=== PATIENT | female | born 2000 | race Caucasian/White ===

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

== ENCOUNTER 2019-07-01 10:59 | Emergency (ER) | payer MEDICAID, OTHER ==
[2019-07-01 11:22] LABS: APPEARANCE,URINE CLEAR (CLEAR); BILIRUBIN,URINE NEGATIVE (NEGATIVE); COLOR,URINE YELLOW (YELLOW); GLUCOSE, URINE (UA) NEGATIVE (NEGATIVE); KETONES,URINE NEGATIVE (NEGATIVE); LEUKOCYTE ESTERASE ,URINE NEGATIVE (NEGATIVE); NITRATE,URINE NEGATIVE (NEGATIVE); OCCULT BLOOD,URINE MODERATE (NEGATIVE); PH,URINE 5.5 (5.0-8.0); PROTEIN,URINE NEGATIVE (NEGATIVE); UROBILINOGEN,URINE 0.2 mg/dL (0.2-1.0)
[2019-07-01 11:27] LABS: BASOPHILS % (AUTO) 0.4 % (0.0-5.0); EOSINOPHILS % (AUTO) 1.3 % (0.0-8.0); HEMATOCRIT 44.1 % (36-48); LYMPHOCYTES % (AUTO) 23.4 % (21.0-51.0); MEAN CORPUSCULAR HEMOGLOBIN 29.2 pg (27.0-33.0); MEAN CORPUSCULAR HGB CONC 33.6 g/dL (32.0-36.0); MEAN CORPUSCULAR VOLUME 86.8 fL (80-100); MONOCYTES % (AUTO) 4.8 % (3.0-13.0); NEUTROPHILS % (AUTO) 70.1 % (40.0-77.0); PLATELET COUNT (AUTO) 273 K/uL (130-400); RED BLOOD CELL COUNT(AUTO) 5.08 MIL/uL (4.00-5.50); RED CELL DISTRIBUTION WIDTH 13.9 % (11.0-15.5); WHITE BLOOD COUNT (AUTO) 7.8 K/uL (4.8-10.8)
[2019-07-01 11:31] LABS: AMPHET/METH SCREEN,URINE NEGATIVE (NEGATIVE); BACTERIA,URINE Few /HPF (None Seen); BARBITURATE SCREEN, URINE NEGATIVE (NEGATIVE); BENZODIAZEPINES SCREEN,URINE NEGATIVE (NEGATIVE); CANNABINOID SCREEN,URINE POSITIVE (NEGATIVE); COCAINE SCREEN,URINE NEGATIVE (NEGATIVE); OPIATE SCREEN,URINE NEGATIVE (NEGATIVE); PHENCYCLIDINE SCREEN,URINE NEGATIVE (NEGATIVE); RBC,URINE 0-1 /HPF (0-1); WBC,URINE 0-1 /HPF (0-1)
[2019-07-01 11:51] LABS: CREATININE 0.8 mg/dL (0.5-1.5); POTASSIUM 4.2 mmol/L (3.5-5.1)
[2019-07-01 12:01] LABS: ALBUMIN 4.4 g/dL (3.5-5.0); BILIRUBIN,TOTAL 0.6 mg/dL (0.2-1.0); TOTAL PROTEIN, SERUM 8.3 g/dL (6.0-8.3)
== END 2019-07-01 12:45 | disposition home or self-care (01) ==
LOC: EDH 10:59
DX: N93.8 Other specified abnormal uterine and vaginal bleeding (principal); R55 Syncope and collapse; Z72.0 Tobacco use
CPT/HCPCS: 36415; 80053; 80305; 81001; 84702; 85025; 86900; 86901; 93005

== ENCOUNTER 2019-12-05 17:10 | Emergency (ER) | payer MEDICAID ==
[2019-12-05 17:41] LABS: BASOPHILS % (AUTO) 0.2 % (0.0-5.0); EOSINOPHILS % (AUTO) 0.2 % (0.0-8.0); LYMPHOCYTES % (AUTO) 13.1 % (21.0-51.0); MEAN CORPUSCULAR HEMOGLOBIN 30.5 pg (27.0-33.0); MEAN CORPUSCULAR HGB CONC 34.2 g/dL (32.0-36.0); MEAN CORPUSCULAR VOLUME 89.3 fL (80-100); MONOCYTES % (AUTO) 3.6 % (3.0-13.0); NEUTROPHILS % (AUTO) 82.5 % (40.0-77.0); PLATELET COUNT (AUTO) 191 K/uL (130-400); RED BLOOD CELL COUNT(AUTO) 4.03 MIL/uL (4.00-5.50); RED CELL DISTRIBUTION WIDTH 13.8 % (11.0-15.5); WHITE BLOOD COUNT (AUTO) 12.7 K/uL (4.8-10.8)
[2019-12-05 17:42] LABS: APPEARANCE,URINE Cloudy (CLEAR); BILIRUBIN,URINE Negative (NEGATIVE); COLOR,URINE Yellow (YELLOW); GLUCOSE, URINE (UA) Negative (NEGATIVE); KETONES,URINE Negative (NEGATIVE); LEUKOCYTE ESTERASE ,URINE Negative (NEGATIVE); NITRATE,URINE Negative (NEGATIVE); OCCULT BLOOD,URINE Negative (NEGATIVE); PH,URINE 7.5 (5.0-8.0); PROTEIN,URINE Negative (NEGATIVE); UROBILINOGEN,URINE 0.2 mg/dL (0.2-1.0)
[2019-12-05 17:49] LABS: AMPHET/METH SCREEN,URINE NEGATIVE (NEGATIVE); BARBITURATE SCREEN, URINE NEGATIVE (NEGATIVE); BENZODIAZEPINES SCREEN,URINE NEGATIVE (NEGATIVE); CANNABINOID SCREEN,URINE POSITIVE (NEGATIVE); COCAINE SCREEN,URINE NEGATIVE (NEGATIVE); OPIATE SCREEN,URINE NEGATIVE (NEGATIVE); PHENCYCLIDINE SCREEN,URINE NEGATIVE (NEGATIVE)
[2019-12-05 17:51] LABS: CREATININE 0.6 mg/dL (0.5-1.5); POTASSIUM 3.6 mmol/L (3.5-5.1)
[2019-12-05 17:56] LABS: ALBUMIN 3.4 g/dL (3.5-5.0); BILIRUBIN,TOTAL 0.7 mg/dL (0.2-1.0); TOTAL PROTEIN, SERUM 6.9 g/dL (6.0-8.3)
[2019-12-05 17:58] LABS: BACTERIA,URINE Few /HPF (None Seen); MUCUS,URINE Few LPF (None Seen); SQUAMOUS EPITHELIAL CELL,UR 0-2 /HPF (0-2)
[2019-12-05] MEDS ORDERED: SODIUM CHLORIDE 0.9% 1000ML 1,000 ML IV ONE (18:35)
== END 2019-12-05 19:42 | disposition home or self-care (01) ==
LOC: EDH 17:10
DX: O9A.212 Injury, poisoning and certain other consequences of external causes complicating pregnancy, second trimester (principal); S62.303A Unspecified fracture of third metacarpal bone, left hand, initial encounter for closed fracture; R55 Syncope and collapse; Z72.0 Tobacco use; Z3A.19 19 weeks gestation of pregnancy; W18.39XA Other fall on same level, initial encounter; Y93.89 Activity, other specified; Y92.89 Other specified places as the place of occurrence of the external cause; Y99.8 Other external cause status
CPT/HCPCS: 29125; 36415; 73130; 80053; 80305; 81001; 85025; 93005; 96360; 99285; J7030

== ENCOUNTER 2020-04-04 14:40 | Observation (INO) | payer MEDICAID ==
[~2020-04-04] VITALS: Ht 167.6 cm; Wt 79.4 kg
[2020-04-04 15:21] LABS: APPEARANCE,URINE Clear (CLEAR); BILIRUBIN,URINE Negative (NEGATIVE); COLOR,URINE Yellow (YELLOW); GLUCOSE, URINE (UA) Negative (NEGATIVE); KETONES,URINE Negative (NEGATIVE); LEUKOCYTE ESTERASE ,URINE Trace (NEGATIVE); NITRATE,URINE Negative (NEGATIVE); OCCULT BLOOD,URINE Negative (NEGATIVE); PROTEIN,URINE Negative (NEGATIVE)
[2020-04-04 15:38] LABS: BACTERIA,URINE Rare /HPF (None Seen); RBC,URINE 0-1 /HPF (0-1); SQUAMOUS EPITHELIAL CELL,UR Rare /HPF (0-2)
[2020-04-04] MEDS ORDERED: LACTATED RINGERS 1000ML 1,000 ML IV SCH (16:00)
[2020-04-04] MEDS ORDERED: CEFTRIAXONE SODIUM 1 GM IV SCH (17:00)
[2020-04-04 18:35] LABS: AMPHET/METH SCREEN,URINE NEGATIVE (NEGATIVE); BARBITURATE SCREEN, URINE NEGATIVE (NEGATIVE); BENZODIAZEPINES SCREEN,URINE POSITIVE (NEGATIVE); CANNABINOID SCREEN,URINE NEGATIVE (NEGATIVE); COCAINE SCREEN,URINE NEGATIVE (NEGATIVE); OPIATE SCREEN,URINE NEGATIVE (NEGATIVE); PHENCYCLIDINE SCREEN,URINE NEGATIVE (NEGATIVE)
== END 2020-04-04 16:51 | disposition home or self-care (01) ==
LOC: LDH 14:40
PROVIDERS: ADMIT Obstetrics & Gynecology; ATTEND Obstetrics & Gynecology
DX: O26.893 Other specified pregnancy related conditions, third trimester (principal); R10.2 Pelvic and perineal pain; Z3A.36 36 weeks gestation of pregnancy
CPT/HCPCS: 80305; 81001; G0378 ×2; J0696; J7120; 96360

== ENCOUNTER 2020-04-07 16:51 | Observation (INO) | payer MEDICAID ==
[~2020-04-07] VITALS: Ht 167.6 cm; Wt 80.3 kg
[2020-04-07 17:48] LABS: APPEARANCE,URINE Clear (CLEAR); BILIRUBIN,URINE Negative (NEGATIVE); COLOR,URINE Yellow (YELLOW); GLUCOSE, URINE (UA) Negative (NEGATIVE); KETONES,URINE 15 mg/dL (NEGATIVE); LEUKOCYTE ESTERASE ,URINE Trace (NEGATIVE); NITRATE,URINE Negative (NEGATIVE); OCCULT BLOOD,URINE Negative (NEGATIVE); PROTEIN,URINE Negative (NEGATIVE)
[2020-04-07 17:54] LABS: AMPHET/METH SCREEN,URINE NEGATIVE (NEGATIVE); BARBITURATE SCREEN, URINE NEGATIVE (NEGATIVE); BENZODIAZEPINES SCREEN,URINE NEGATIVE (NEGATIVE); CANNABINOID SCREEN,URINE POSITIVE (NEGATIVE); COCAINE SCREEN,URINE NEGATIVE (NEGATIVE); OPIATE SCREEN,URINE NEGATIVE (NEGATIVE); PHENCYCLIDINE SCREEN,URINE NEGATIVE (NEGATIVE)
[2020-04-07 18:18] LABS: BACTERIA,URINE Rare /HPF (None Seen); RBC,URINE 0-1 /HPF (0-1); SQUAMOUS EPITHELIAL CELL,UR Few /HPF (0-2)
== END 2020-04-07 18:55 | disposition home or self-care (01) ==
LOC: EDH 16:51 → LDH 17:03
PROVIDERS: ADMIT Obstetrics & Gynecology; ATTEND Obstetrics & Gynecology
DX: O26.893 Other specified pregnancy related conditions, third trimester (principal); Z3A.37 37 weeks gestation of pregnancy
CPT/HCPCS: 80305; 81001; 99284; G0378 ×2

== ENCOUNTER 2020-04-09 13:17 | Observation (INO) | payer MEDICAID ==
[2020-04-09] MEDS ORDERED: LOPERAMIDE 1 MG/7.5 ML UDCUP PO SCH (13:45)
[2020-04-09] MEDS ORDERED: LACTATED RINGERS 1000ML 1,000 ML IV SCH (13:45)
[2020-04-09 14:18] LABS: BASOPHILS % (AUTO) 0.3 % (0.0-5.0); EOSINOPHILS % (AUTO) 0.7 % (0.0-8.0); HEMATOCRIT 31.4 % (36-48); LYMPHOCYTES % (AUTO) 18.6 % (21.0-51.0); MEAN CORPUSCULAR HEMOGLOBIN 27.9 pg (27.0-33.0); MEAN CORPUSCULAR HGB CONC 32.8 g/dL (32.0-36.0); MEAN CORPUSCULAR VOLUME 85.1 fL (80-100); MONOCYTES % (AUTO) 5.1 % (3.0-13.0); NEUTROPHILS % (AUTO) 74.7 % (40.0-77.0); PLATELET COUNT (AUTO) 214 K/uL (130-400); RED BLOOD CELL COUNT(AUTO) 3.69 MIL/uL (4.00-5.50); RED CELL DISTRIBUTION WIDTH 13.8 % (11.0-15.5); WHITE BLOOD COUNT (AUTO) 8.9 K/uL (4.8-10.8)
[2020-04-09 14:26] LABS: APPEARANCE,URINE Clear (CLEAR); BILIRUBIN,URINE Negative (NEGATIVE); COLOR,URINE Yellow (YELLOW); GLUCOSE, URINE (UA) Negative (NEGATIVE); KETONES,URINE Negative (NEGATIVE); LEUKOCYTE ESTERASE ,URINE Trace (NEGATIVE); NITRATE,URINE Negative (NEGATIVE); OCCULT BLOOD,URINE Negative (NEGATIVE); PROTEIN,URINE Negative (NEGATIVE); UROBILINOGEN,URINE 0.2 mg/dL (0.2-1.0)
[2020-04-09 14:34] LABS: AMPHET/METH SCREEN,URINE NEGATIVE (NEGATIVE); BARBITURATE SCREEN, URINE NEGATIVE (NEGATIVE); BENZODIAZEPINES SCREEN,URINE POSITIVE (NEGATIVE); CANNABINOID SCREEN,URINE NEGATIVE (NEGATIVE); COCAINE SCREEN,URINE NEGATIVE (NEGATIVE); OPIATE SCREEN,URINE NEGATIVE (NEGATIVE); PHENCYCLIDINE SCREEN,URINE NEGATIVE (NEGATIVE)
[2020-04-09 14:38] LABS: CREATININE 0.6 mg/dL (0.5-1.5); POTASSIUM 3.7 mmol/L (3.5-5.1)
[2020-04-09 14:39] LABS: RBC,URINE 0-1 /HPF (0-1)
[2020-04-09 14:40] LABS: BACTERIA,URINE Rare /HPF (None Seen); SQUAMOUS EPITHELIAL CELL,UR Few /HPF (0-2)
[2020-04-09 14:43] LABS: BILIRUBIN,TOTAL 0.3 mg/dL (0.2-1.0); TOTAL PROTEIN, SERUM 6.5 g/dL (6.0-8.3)
[2020-04-09] MEDS ORDERED: LOPERAMIDE 1 MG/7.5 ML UDCUP PO PRN (15:30)
[2020-04-09] MEDS ORDERED: CEFTRIAXONE SODIUM 1 GM IVP SCH (16:50)
--- NOTE | 2020-04-09 17:00 | NUR ---
PT EXPRESSES DESIRE TO LEAVE AND STATES WOULD RATHER HYDRATE AT HOME IF OK WITH FRIT MIXER AND BURNER. JAY ENRIQUEZ CNM NOTIFIED AND ORDERS RECEIVED FOR DISCHARGE PT HOME. INSTRUCTED TO HYDRATE WITH PEDIALYTE AND TAKE IMMODIUM OTC DIRECTED.
--- NOTE | 2020-04-09 17:10 | NUR ---
PT INSTRUCTED TO HYDRATE WITH PEDIALYTE AND TAKE OTC IMMODIUM DIRECTED. PT VERBALIZED UNDERSTANDING. QUESTIONS ANSWERED APPROPRIATELY.
--- NOTE | 2020-04-09 17:20 | NUR ---
DISCHARGE PT LEFT UNIT AMBULATING, ACCOMPANIED BY SIGNIFICANT OTHER. DENIED PAIN AND HAD NO COMPLAINTS AT THIS TIME. TRANSPORTED BY PERSONAL VEHICLE.
== END 2020-04-09 16:50 | disposition home or self-care (01) ==
LOC: LDH 13:17
PROVIDERS: ADMIT Obstetrics & Gynecology; ATTEND Obstetrics & Gynecology
DX: O26.893 Other specified pregnancy related conditions, third trimester (principal); R19.7 Diarrhea, unspecified; Z3A.37 37 weeks gestation of pregnancy
CPT/HCPCS: 36415; 80053; 80305; 81001; 85025; 87046; G0378 ×3; J7120; 96360; 96361

== ENCOUNTER 2020-04-10 21:16 | Inpatient (IN) | payer MEDICAID ==
[~2020-04-10] VITALS: Ht 167.6 cm; Wt 81.2 kg
[2020-04-10] MEDS ORDERED: LACTATED RINGERS 1000ML 1,000 ML IV PRN (22:11)
[2020-04-10 22:32] LABS: BILIRUBIN,URINE Negative (NEGATIVE); COLOR,URINE Yellow (YELLOW); GLUCOSE, URINE (UA) Negative (NEGATIVE); KETONES,URINE Negative (NEGATIVE); LEUKOCYTE ESTERASE ,URINE Moderate (NEGATIVE); NITRATE,URINE Negative (NEGATIVE); OCCULT BLOOD,URINE Negative (NEGATIVE); PROTEIN,URINE Negative (NEGATIVE)
[2020-04-10 22:34] LABS: APPEARANCE,URINE SLIGHTLY CLOUDY (CLEAR)
[2020-04-10 22:44] LABS: RBC,URINE 0-1 /HPF (0-1)
[2020-04-10 22:45] LABS: BACTERIA,URINE Few /HPF (None Seen)
[2020-04-10 22:46] LABS: AMPHET/METH SCREEN,URINE NEGATIVE (NEGATIVE); BARBITURATE SCREEN, URINE NEGATIVE (NEGATIVE); BENZODIAZEPINES SCREEN,URINE POSITIVE (NEGATIVE); CANNABINOID SCREEN,URINE POSITIVE (NEGATIVE); COCAINE SCREEN,URINE NEGATIVE (NEGATIVE); OPIATE SCREEN,URINE NEGATIVE (NEGATIVE); PHENCYCLIDINE SCREEN,URINE NEGATIVE (NEGATIVE)
[2020-04-10 23:14] LABS: HEMATOCRIT 29.7 % (36-48); MEAN CORPUSCULAR HEMOGLOBIN 27.7 pg (27.0-33.0); MEAN CORPUSCULAR HGB CONC 32.7 g/dL (32.0-36.0); MEAN CORPUSCULAR VOLUME 84.9 fL (80-100); RED BLOOD CELL COUNT(AUTO) 3.5 MIL/uL (4.00-5.50); RED CELL DISTRIBUTION WIDTH 13.8 % (11.0-15.5); WHITE BLOOD COUNT (AUTO) 10.4 K/uL (4.8-10.8)
[2020-04-11 00:38] VITALS: BP 127/65
[2020-04-11] MEDS ORDERED: OXYTOCIN-LR 20 UNITS/1000 ML 1,000 ML IV ONE ×2 (03:36→10:48)
[2020-04-11] MEDS ORDERED: OXYTOCIN 10 USP UNITS/ML 20 UNIT in LACTATED RINGERS 1000ML 1,000 ML IV SCH (04:00)
[2020-04-11] MEDS ORDERED: PROMETHAZINE HCL 25 MG/ML 1ML AMPULE IM SCH (08:00)
[2020-04-11] MEDS ORDERED: MEPERIDINE-PF 50 MG/ML SYG IVP SCH (08:00)
--- NOTE | 2020-04-11 08:45 | NUR ---
OPEN CPS CASE Sw contacted Claribel Cartagena [phone], who states she is pt's CPS bottle caser for the 1 1/2 yro. Reports pt has not been compliant with CPS. New case to be called in at time of delivery.
[2020-04-11] MEDS ORDERED: LIDOCAINE HCL 1% 20 ML VIAL ONE (09:32)
--- NOTE | 2020-04-11 09:59 | NUR ---
CPS REPORT # [id number] Pauline contacted by L&D nurse, baby boy was born. PAULINE informed Claribel CPS adult protective caseworker and called in new report to [facility] ext [phone]
--- NOTE | 2020-04-11 10:18 | NUR ---
CPS f/u Claribel to meet with mom and baby in am Tomorrow
[2020-04-11 11:05] VITALS: BP 124/76
[2020-04-11] MEDS ORDERED: WITCH HAZEL 1 PAD TP PRN (11:15)
[2020-04-11] MEDS ORDERED: BENZOCAINE/LANOLIN/ALOE VERA 60 ML AEROSOL TP PRN (11:15)
[2020-04-11] MEDS ORDERED: ACETAMINOPHEN 325 MG TAB PO PRN (11:15)
[2020-04-11] MEDS ORDERED: LANOLIN 30GM OINTMENT TP PRN (11:15)
[2020-04-11] MEDS ORDERED: ACETAMINOPHEN-CODEINE 300/30MG TAB PO PRN (11:15)
--- NOTE | 2020-04-11 11:30 | NUR ---
recovery QBL - 17ml Addendum: 04/11/20 at 1840 by ALLY GALLAGHER RN Amended: Links added.
[2020-04-11] MEDS: IBUPROFEN 600 MG TABLET PO PRN (12:39)
[2020-04-11 19:40] VITALS: BP 116/72
[2020-04-11] MEDS: DOCUSATE SODIUM 100 MG CAP PO SCH (21:33)
[2020-04-11 23:42] VITALS: BP 99/52
[2020-04-12 03:49] VITALS: BP 98/52
[2020-04-12 05:27] LABS: HEMATOCRIT 28.4 % (36-48); MEAN CORPUSCULAR HGB CONC 32.4 g/dL (32.0-36.0); MEAN CORPUSCULAR VOLUME 86.3 fL (80-100); RED BLOOD CELL COUNT(AUTO) 3.29 MIL/uL (4.00-5.50); RED CELL DISTRIBUTION WIDTH 13.9 % (11.0-15.5); WHITE BLOOD COUNT (AUTO) 11.4 K/uL (4.8-10.8)
[2020-04-12 07:19] VITALS: BP 118/55
[2020-04-12 08:11] LABS: HEPATITIS Bs ANTIGEN SCREEN P Negative (Negative)
[2020-04-12] MEDS: DOCUSATE SODIUM 100 MG CAP PO SCH (09:00)
--- NOTE | 2020-04-12 09:12 | NUR ---
CPS f/u Claribel miner here to meet with pt and see baby.
[2020-04-12] MEDS: IBUPROFEN 600 MG TABLET PO PRN (10:05)
--- NOTE | 2020-04-12 11:00 | NUR ---
verbal and written discharge instructions given, informed of the follow up appointment, no prescription given. informed to call the doctor for future concerns. pt voiced understanding to all things discussed. Addendum: 04/12/20 at 1106 by ALLY GALLAGHER RN Amended: Links added.
--- NOTE | 2020-04-12 11:10 | NUR ---
pt is dismissed in stable condition, brought to private car via wheelchair by mike Vera pcp Addendum: 04/12/20 at 1149 by ALLY GALLAGHER RN Amended: Links added.
== END 2020-04-12 11:10 | disposition home or self-care (01) | DRG 560 ==
LOC: LDH 22:06 → WSH 04-11 11:21
PROVIDERS: ADMIT Obstetrics & Gynecology; ATTEND Obstetrics & Gynecology
PROC: 10E0XZZ Delivery of Products of Conception, External Approach (ICD-10-PCS; principal; 2020-04-11)
PROC: 0KQM0ZZ Repair Perineum Muscle, Open Approach (ICD-10-PCS; 2020-04-11)
PROC: 10907ZC Drainage of Amniotic Fluid, Therapeutic from Products of Conception, Via Natural or Artificial Opening (ICD-10-PCS; 2020-04-11)
DX: O69.1XX0 Labor and delivery complicated by cord around neck, with compression, not applicable or unspecified (principal); Z37.0 Single live birth; O70.1 Second degree perineal laceration during delivery; Z3A.37 37 weeks gestation of pregnancy
CPT/HCPCS: 36415; 80305; 81001; 85027; 86592; 86850; 86900; 86901; 87088; 87340; A4351; A4606; G0378; J2175; J2550; J2590; J7120

== ENCOUNTER 2021-03-11 17:31 | Inpatient (IN) | payer MEDICAID ==
[~2021-03-11] VITALS: Ht 167.6 cm; Wt 58.1 kg
[2021-03-11 17:53] LABS: BASOPHILS % (AUTO) 0.3 % (0.0-5.0); EOSINOPHILS % (AUTO) 0.1 % (0.0-8.0); HEMATOCRIT 30.2 % (36-48); LYMPHOCYTES % (AUTO) 10.2 % (21.0-51.0); MEAN CORPUSCULAR HEMOGLOBIN 24.5 pg (27.0-33.0); MEAN CORPUSCULAR HGB CONC 31.1 g/dL (32.0-36.0); MEAN CORPUSCULAR VOLUME 78.9 fL (80-100); MONOCYTES % (AUTO) 4.4 % (3.0-13.0); NEUTROPHILS % (AUTO) 83.1 % (40.0-77.0); PLATELET COUNT (AUTO) 390 K/uL (130-400); RED BLOOD CELL COUNT(AUTO) 3.83 MIL/uL (4.00-5.50); RED CELL DISTRIBUTION WIDTH 15.6 % (11.0-15.5); WHITE BLOOD COUNT (AUTO) 22.3 K/uL (4.8-10.8)
[2021-03-11 17:56] LABS: APPEARANCE,URINE Clear (CLEAR); BILIRUBIN,URINE Negative (NEGATIVE); COLOR,URINE Yellow (YELLOW); GLUCOSE, URINE (UA) Negative (NEGATIVE); KETONES,URINE Negative (NEGATIVE); LEUKOCYTE ESTERASE ,URINE Trace (NEGATIVE); NITRATE,URINE Negative (NEGATIVE); OCCULT BLOOD,URINE Negative (NEGATIVE); PH,URINE 6.5 (5.0-8.0); PROTEIN,URINE Negative (NEGATIVE)
[2021-03-11] MEDS ORDERED: ACETAMINOPHEN WITH CODEINE 1 TAB TAB ONE (17:56)
[2021-03-11] MEDS ORDERED: 0.9%NACL 1000ML 1,000 ML IV ONE (17:57)
[2021-03-11 17:59] LABS: HCG,QUAL RESULT NEGATIVE (NEGATIVE)
[2021-03-11 18:02] LABS: BACTERIA,URINE Few /HPF (None Seen); RBC,URINE 0-1 /HPF (0-1); SQUAMOUS EPITHELIAL CELL,UR Moderate /HPF (0-2); WBC,URINE 0-1 /HPF (0-1)
[2021-03-11 18:04] LABS: CREATININE 0.9 mg/dL (0.5-1.5); POTASSIUM 3.4 mmol/L (3.5-5.1)
[2021-03-11 18:08] LABS: ALBUMIN 2.5 g/dL (3.5-5.0); BILIRUBIN,TOTAL 0.5 mg/dL (0.2-1.0)
[2021-03-11] MEDS ORDERED: DEXAMETHASONE SOD PHOSPHATE 10MG/ML 1ML VIAL ONE (18:24)
[2021-03-11] MEDS ORDERED: CEFTRIAXONE 1G VIAL ONE (18:24)
[2021-03-11] MEDS ORDERED: AMOX/CLAV 875/125MG TAB PO ONE (18:25)
[2021-03-11] MEDS ORDERED: AZITHROMYCIN 250 MG TABLET PO ONE (18:25)
[2021-03-11 18:54] LABS: AMPHET/METH SCREEN,URINE NEGATIVE (NEGATIVE); BARBITURATE SCREEN, URINE NEGATIVE (NEGATIVE); BENZODIAZEPINES SCREEN,URINE POSITIVE (NEGATIVE); CANNABINOID SCREEN,URINE POSITIVE (NEGATIVE); COCAINE SCREEN,URINE NEGATIVE (NEGATIVE); OPIATE SCREEN,URINE NEGATIVE (NEGATIVE); PHENCYCLIDINE SCREEN,URINE NEGATIVE (NEGATIVE)
[2021-03-11] MEDS ORDERED: IOHEXOL-350 50ML VIAL IV ONE (19:32)
[2021-03-11] MEDS ORDERED: ZOSYN 3.375GM+NS 50ML 50 ML IV ONE (20:14)
[2021-03-11] MEDS ORDERED: ONDANSETRON 4MG INJ IV PRN (22:00)
[2021-03-11] MEDS ORDERED: LIDOCAINE HCL-MPF 1% 2ML VIAL IV PRN (22:15)
[2021-03-11] MEDS ORDERED: KCL 20 MEQ ERTAB PO PRN (22:15)
[2021-03-11] MEDS ORDERED: POTASSIUM CHLORIDE 20MEQ/100ML 100 ML IV PRN (22:15)
[2021-03-11] MEDS ORDERED: POTASSIUM CHLORIDE 10% ELIXIR 20 MEQ/15 ML UDCUP PO PRN (22:15)
[2021-03-11 22:58] LABS: RETICULOCYTE % (AUTO) 1.11 % (0.42-2.23)
[2021-03-11 23:36] LABS: % IRON SATURATION 4.9 % (22-44)
[2021-03-11 23:40] VITALS: BP 100/61
[2021-03-11] MEDS: IPRATROPIUM/ALBUTEROL SULFATE 3 ML SOLUTION IH SCH (23:52)
[2021-03-12] MEDS: SODIUM CHLORIDE 3% FOR INHALATION 4 ML/AMP VIAL.NEB IH ONE ×2 (00:41→01:18)
[2021-03-12] MEDS ORDERED: ZOSYN 3.375GM+NS 50ML 50 ML IV ONE (03:31)
[2021-03-12] MEDS ORDERED: IBUPROFEN 600 MG TABLET ONE (03:32)
[2021-03-12 04:11] VITALS: BP 97/58
[2021-03-12] MEDS: ZOSYN 3.375GM+NS 50ML 50 ML IV SCH ×3 (04:51→22:00)
[2021-03-12 05:06] LABS: BASOPHILS % (AUTO) 0.2 % (0.0-5.0); EOSINOPHILS % (AUTO) 0.2 % (0.0-8.0); HEMATOCRIT 25.3 % (36-48); LYMPHOCYTES % (AUTO) 9.4 % (21.0-51.0); MEAN CORPUSCULAR HEMOGLOBIN 25.2 pg (27.0-33.0); MEAN CORPUSCULAR HGB CONC 31.6 g/dL (32.0-36.0); MEAN CORPUSCULAR VOLUME 79.6 fL (80-100); MONOCYTES % (AUTO) 4.9 % (3.0-13.0); NEUTROPHILS % (AUTO) 83.6 % (40.0-77.0); PLATELET COUNT (AUTO) 354 K/uL (130-400); RED BLOOD CELL COUNT(AUTO) 3.18 MIL/uL (4.00-5.50); RED CELL DISTRIBUTION WIDTH 15.9 % (11.0-15.5); WHITE BLOOD COUNT (AUTO) 20.7 K/uL (4.8-10.8)
[2021-03-12 05:16] LABS: CREATININE 0.8 mg/dL (0.5-1.5); POTASSIUM 3.7 mmol/L (3.5-5.1)
[2021-03-12] MEDS: IPRATROPIUM/ALBUTEROL SULFATE 3 ML SOLUTION IH SCH ×4 (06:28→23:23)
[2021-03-12 07:57] VITALS: BP 95/58
[2021-03-12] MEDS: FAMOTIDINE 20MG VIAL IV SCH ×2 (08:41→20:48)
[2021-03-12] MEDS: IBUPROFEN 600 MG TABLET PO PRN ×2 (08:42→16:15)
[2021-03-12] MEDS: ENOXAPARIN SODIUM 40 MG/0.4 ML SYRINGE SQ SCH (08:44)
[2021-03-12] MEDS ORDERED: BENZONATATE 100 MG CAPSULE PO SCH (09:00)
[2021-03-12] MEDS ORDERED: LINEZOLID 600 MG/ISO-OSM 300 ML IV SCH (10:30)
[2021-03-12 11:26] VITALS: BP 96/54
[2021-03-12] MEDS ORDERED: ZYVOX 600 MG TAB PO SCH ×2 (12:00→21:00)
[2021-03-12] MEDS: BENZONATATE 100 MG CAPSULE PO PRN ×2 (16:14→22:53)
[2021-03-12 16:35] VITALS: BP 96/58
[2021-03-12] MEDS: ACETAMINOPHEN 325 MG TAB PO PRN ×2 (17:29→22:50)
[2021-03-12 19:56] VITALS: BP 115/64
[2021-03-12] MEDS: LACTATED RINGERS 1000ML 1,000 ML IV SCH (20:47)
[2021-03-12] MEDS: CLINDAMYCIN IVPB 600MG/50ML 50 ML IV SCH (20:47)
[2021-03-12 23:18] VITALS: BP 111/55
[2021-03-13] MEDS: IBUPROFEN 600 MG TABLET PO PRN ×2 (04:22→13:51)
[2021-03-13] MEDS: CLINDAMYCIN IVPB 600MG/50ML 50 ML IV SCH ×2 (04:23→13:27)
[2021-03-13] MEDS: ZOSYN 3.375GM+NS 50ML 50 ML IV SCH ×2 (05:09→13:37)
[2021-03-13 05:31] VITALS: BP 102/67
[2021-03-13] MEDS: IPRATROPIUM/ALBUTEROL SULFATE 3 ML SOLUTION IH SCH ×2 (05:59→11:17)
[2021-03-13] MEDS ORDERED: SODIUM CHLORIDE 3% FOR INHALATION 4 ML/AMP VIAL.NEB IH ONE (06:13)
[2021-03-13 07:16] LABS: BASOPHILS % (AUTO) 0.1 % (0.0-5.0); EOSINOPHILS % (AUTO) 0.9 % (0.0-8.0); HEMATOCRIT 26.2 % (36-48); LYMPHOCYTES % (AUTO) 11.4 % (21.0-51.0); MEAN CORPUSCULAR HGB CONC 29.4 g/dL (32.0-36.0); MEAN CORPUSCULAR VOLUME 81.6 fL (80-100); MONOCYTES % (AUTO) 3.8 % (3.0-13.0); NEUTROPHILS % (AUTO) 82.7 % (40.0-77.0); PLATELET COUNT (AUTO) 370 K/uL (130-400); RED BLOOD CELL COUNT(AUTO) 3.21 MIL/uL (4.00-5.50); RED CELL DISTRIBUTION WIDTH 15.9 % (11.0-15.5); WHITE BLOOD COUNT (AUTO) 16.4 K/uL (4.8-10.8)
[2021-03-13 07:25] LABS: CREATININE 0.8 mg/dL (0.5-1.5)
[2021-03-13 08:00] VITALS: BP 98/50
[2021-03-13] MEDS: FAMOTIDINE 20MG VIAL IV SCH (10:43)
[2021-03-13] MEDS: ENOXAPARIN SODIUM 40 MG/0.4 ML SYRINGE SQ SCH (10:43)
[2021-03-13 11:57] VITALS: BP 110/66
[2021-03-13] MEDS: LACTATED RINGERS 1000ML 1,000 ML IV SCH (13:45)
[2021-03-13] MEDS: BENZONATATE 100 MG CAPSULE PO PRN (14:09)
[2021-03-13 16:00] VITALS: BP 116/69
== END 2021-03-13 17:20 | disposition left against medical advice (07) | DRG 137 ==
LOC: EDH 17:31 → EDHIP 17:32 → 3AH 22:39 → 3CH 22:53
PROVIDERS: ADMIT Internal Medicine; ATTEND Internal Medicine
DX: J85.1 Abscess of lung with pneumonia (principal); D64.9 Anemia, unspecified; E87.6 Hypokalemia; D72.810 Lymphocytopenia; F12.10 Cannabis abuse, uncomplicated; Z20.822 Contact with and (suspected) exposure to COVID-19; F17.200 Nicotine dependence, unspecified, uncomplicated; R63.4 Abnormal weight loss; Z68.20 Body mass index [BMI] 20.0-20.9, adult; Z82.5 Family history of asthma and other chronic lower respiratory diseases; Z82.49 Family history of ischemic heart disease and other diseases of the circulatory system
CPT/HCPCS: 36415; 71045; 71270; 80048; 80053; 80305; 81001; 81025; 82607; 82728; 83605; 83735; 85025; 86480; 86701; 87040; 87071; 87116; 87205; 87206; 87390; 87426; 87556; 87637; 93005; 94640; 94664; 94760; A4606; G0378; J0696; J1100; J1650; J2020; J2543; J3490; J7030; J7120; Q9967; U0003

== ENCOUNTER 2021-03-25 12:35 | Inpatient (IN) | payer MEDICAID ==
[~2021-03-25] VITALS: Ht 167.6 cm; Wt 58.1 kg
[2021-03-25 13:01] LABS: BASOPHILS % (AUTO) 0.5 % (0.0-5.0); EOSINOPHILS % (AUTO) 1.9 % (0.0-8.0); HEMATOCRIT 32.4 % (36-48); LYMPHOCYTES % (AUTO) 24.6 % (21.0-51.0); MEAN CORPUSCULAR HEMOGLOBIN 24.5 pg (27.0-33.0); MEAN CORPUSCULAR HGB CONC 30.9 g/dL (32.0-36.0); MEAN CORPUSCULAR VOLUME 79.4 fL (80-100); MONOCYTES % (AUTO) 4.5 % (3.0-13.0); NEUTROPHILS % (AUTO) 67.4 % (40.0-77.0); PLATELET COUNT (AUTO) 617 K/uL (130-400); RED BLOOD CELL COUNT(AUTO) 4.08 MIL/uL (4.00-5.50); RED CELL DISTRIBUTION WIDTH 17.5 % (11.0-15.5); WHITE BLOOD COUNT (AUTO) 8.4 K/uL (4.8-10.8)
[2021-03-25 13:05] LABS: POTASSIUM 3.4 mmol/L (3.5-5.1)
[2021-03-25 13:10] LABS: ALBUMIN 3.3 g/dL (3.5-5.0); BILIRUBIN,TOTAL 0.4 mg/dL (0.2-1.0); CRP QUANTITATIVE 9.7 mg/L (0.00-9.0); TOTAL PROTEIN, SERUM 8.4 g/dL (6.0-8.3)
[2021-03-25 13:44] LABS: APPEARANCE,URINE CLOUDY (CLEAR); BILIRUBIN,URINE NEGATIVE (NEGATIVE); COLOR,URINE YELLOW (YELLOW); GLUCOSE, URINE (UA) NEGATIVE (NEGATIVE); KETONES,URINE NEGATIVE (NEGATIVE); LEUKOCYTE ESTERASE ,URINE NEGATIVE (NEGATIVE); NITRATE,URINE NEGATIVE (NEGATIVE); OCCULT BLOOD,URINE SMALL (NEGATIVE); PROTEIN,URINE NEGATIVE (NEGATIVE); UROBILINOGEN,URINE 0.2 mg/dL (0.2-1.0)
[2021-03-25 13:45] LABS: HCG,QUAL RESULT NEGATIVE (NEGATIVE)
[2021-03-25 13:47] LABS: AMORPHOUS SEDIMENT,UR Moderate /LPF (None Seen); BACTERIA,URINE Few /HPF (None Seen); RBC,URINE 0-1 /HPF (0-1); SQUAMOUS EPITHELIAL CELL,UR Few /HPF (0-2); WBC,URINE 0-1 /HPF (0-1)
[2021-03-25] MEDS ORDERED: CEFTRIAXONE 1G VIAL ONE (14:15)
[2021-03-25] MEDS ORDERED: ACETAMINOPHEN 500 MG TABLET ONE (15:01)
[2021-03-25] MEDS ORDERED: LINEZOLID 600 MG/ISO-OSM 300 ML IV SCH (16:00)
[2021-03-25] MEDS ORDERED: ONDANSETRON 4MG INJ IV PRN (16:00)
[2021-03-25] MEDS ORDERED: ACETAMINOPHEN 325 MG TAB PO PRN ×2 (16:00)
[2021-03-25] MEDS ORDERED: SODIUM CHLORIDE 3% FOR INHALATION 4 ML/AMP VIAL.NEB IH ONE (17:06)
[2021-03-25] MEDS ORDERED: ZOSYN 3.375GM+NS 50ML 50 ML IV ONE (17:16)
[2021-03-25] MEDS ORDERED: FAMOTIDINE 20MG VIAL IV SCH (21:00)
[2021-03-25] MEDS ORDERED: ZOSYN 3.375GM+NS 50ML 50 ML IV SCH (21:00)
== END 2021-03-25 18:49 | disposition left against medical advice (07) | DRG 139 ==
LOC: EEVIPCON 12:35 → EDH 12:35 → EDHIP 12:36
PROVIDERS: ADMIT Internal Medicine; ATTEND Internal Medicine
DX: J18.9 Pneumonia, unspecified organism (principal); D47.3 Essential (hemorrhagic) thrombocythemia; D50.9 Iron deficiency anemia, unspecified; E87.6 Hypokalemia; Z82.5 Family history of asthma and other chronic lower respiratory diseases; Z82.49 Family history of ischemic heart disease and other diseases of the circulatory system
CPT/HCPCS: 36415; 71045; 80053; 81001; 81025; 83605; 84145; 85025; 85651; 86140; 87040; 93970; 94640; G0378; J0696; J2020; J2543